=== PATIENT | male | born 1995 | race Caucasian/White ===

== ENCOUNTER 2021-01-15 09:39 | Emergency (ER) | payer OTHER ==
[2021-01-15 10:03] VITALS: BP 127/67; PULSE 77; TEMP 98.5; BMI 25.2
== END 2021-01-15 11:00 | disposition home or self-care (01) ==
LOC: JER 09:39
DX: R68.83 Chills (without fever) (principal)
CPT/HCPCS: 99283-25; C9803; U0003; U0005